=== PATIENT | male | born 1980 | race Caucasian/White ===

== ENCOUNTER → 2021-10-31 | Outpatient (CLI) | payer OTHER | LOC: COL.RAD 06:53 | DX: M51.27 Other intervertebral disc displacement, lumbosacral region (principal) ==

== ENCOUNTER → 2021-12-19 | Outpatient (CLI) | payer OTHER | LOC: COL.RAD 09:25 | DX: S43.432A Superior glenoid labrum lesion of left shoulder, initial encounter (principal); S46.012A Strain of muscle(s) and tendon(s) of the rotator cuff of left shoulder, initial encounter ==